=== PATIENT | male | born 2005 ===

== ENCOUNTER 2025-05-09 10:02 | Outpatient (AMB) | payer OTHER, SELFPAY ==
--- NOTE | 2025-05-09 10:05 | AM.OFFWIN_ITS ---
Intake Vital Signs 05/09/25 10:08 Height 5 ft 9 in Weight 119 lb BMI 17.6 BP 100/60 Blood Pressure Location Rt brachial Position Sitting Pulse 72 Pulse Source Pulse Oximeter Temp 98.1 F Temp Source Oral Pulse Oximetry (%) 97 Oxygen Delivery Method Room Air Intake Visit Reasons: R Eye pain Intake Note: pt is here for rt eye pain and burning when exposed to sun, wakes up with crust in the morning for 6 days- thinks branch may have struck eye Allergies environmental allergies Allergy (Mild, Verified 05/09/25 10:11) cold like symptoms pollen extracts Allergy (Mild, Verified 05/09/25 10:11) Itchy Eyes Do you need a note to return to daycare/school/sports/work: No HPI HPI Comments History of Present Illness Details 19 y/o Male patient who presents to the walk in clinic with c/o right eye pain for few days now. He reports light-sensitivity, discharge and tearing. He was playing Hide and seek with his Friends in [place], where a Branch scratched his right eye. [facility] Medical History (Updated 05/09/25 @ 10:35 by Kim Montero NP) Nasal congestion with rhinorrhea Corneal abrasion, right Review of Systems Const All systems reviewed & are unremarkable except as noted in HPI and below Physical Exam Vital Signs: Last Vital Signs Temp 98.1 F 05/09/25 10:08 Pulse 72 05/09/25 10:08 BP 100/60 05/09/25 10:08 Pulse Ox 97 05/09/25 10:08 Oxygen Delivery Method Room Air 05/09/25 10:08 BMI result Body Mass Index 17.6 Const General: no acute distress Nutritional Appearance: thin Orientation/consciousness: patient oriented x3 Eyes Conjunctivae: conjunctival abnormal right conjunctival injection Corneas: corneas abnormal on the right fluorescein used; with no foreign body noted Pupils: Equal, round and reactive pupils present EOM: EOMs intact bilaterally Direct Ophthalmoscopy: increased light reflex on the right Neuro General: patient oriented x3, gait normal and moves all extremities Cranial nerves: Yes Equal, round and reactive pupils present Psych Speech and movement: Normal speech and movement present Assessment & Plan Assessment & Plan (1) Corneal abrasion, right: Code(s): S05.01XA - Injury of conjunctiva and corneal abrasion without foreign body, right eye, initial encounter Qualifiers: Encounter type: initial encounter Qualified Code(s): S05.01XA - Injury of conjunctiva and corneal abrasion without foreign body, right eye, initial encounter Plan: Positive Abrasion right eye - will treat with Abx drops. May wear sunglasses outside house Keep eye clean and dry (2) Nasal congestion with rhinorrhea: Code(s): R09.81 - Nasal congestion; J34.89 - Other specified disorders of nose and nasal sinuses Plan: Ordered Zrytec BID for few days. May use OTC Saline drops. Medications: New cetirizine (Zyrtec) TAKE DIRECTED. 10 mg PO DAILY 20 tabs 0RF J34.89 - Other specified disorders of nose and nasal sinuses, R09.81 - Nasal congestion ciprofloxacin HCl 0.3% Put 1-2 drops in affected right eye every 2hrs up to 8 times/day for 2 days; then 4 times/day for 5 days. 5 mL 0RF S05.01XA - Injury of conjunctiva and corneal abrasion without foreign body, right eye, initial encounter Coding Level of Care Code Est Pt Level 4 (98866) Diagnoses Abrasion of right cornea, initial encounter S05.01XA Encounter type: initial encounter Nasal congestion with rhinorrhea R09.81; J34.89 Time Spent (min) 20
[2025-05-09 10:08] VITALS: BP 100/60; PULSE 72; TEMP 36.7; O2SAT 97; BMI 17.6
--- OUTSIDE RECORDS SUMMARY | 2025-05-09 10:31 | XMS_ITS | Clinical Summary ---
Author Organization [place] [id number] [facility] Address [address] [place] [id number] Phone Care Team Providers Care Sample Cutter Name Role Phone Kelly Mancini MD Primary Care Provider [phone] Surgical History Surgery Date Site/Laterality Comments OTHER SURGICAL HISTORY PROCEDURE: DENIES PREVIOUS SURGERY Family History Relation Name Status Comments Brother 1 Alive Ryan; 1988 Brother 2 Alive Janak; 1989 Brother 3 Alive Terry; 1990 Father Alive healthy Mother Alive kidney stones Sister 1 Alive 1986; cliff Sister 2 Alive Jacy; 1993 Sister 3 Alive Ela; 1998 Sister 4 Alive Sue; 2007 Social History Tobacco Use Types Packs/Day Years Used Date Smoking Tobacco: Never Smokeless Tobacco: Never Alcohol Use Standard Drinks/Week Comments Not Asked 0 (1 standard drink = 0.6 oz pur e alcohol) Sex and Gender Information Value Date Recorded Sex Assigned at Not on file Legal Sex Male 7:02 AM EST Gender Identity Not on file Sexual Orientation Not on file Obstetrics History Last Filed Vital Signs Vital Sign Reading Time Taken Comments Blood Pressure 102/64 11/09/2018 3:21 PM EST Pulse 92 07/22/2021 3:15 PM EDT Temperature - - Respiratory Rate - - Oxygen Saturation - - Inhaled Oxygen Concentration - - Weight 51.9 kg (114 lb 8 oz) 07/22/2021 3:15 PM EDT Height 152.4 cm (5') 11/09/2018 3:21 PM EST Body Mass Index - - Plan of Treatment Upcoming Encounters Date Type Department Care Team (Late st Contact Info) Description 12/24/2025 3:30 PM EDT Office Visit Internal Medicine - [facility] [address] [place] [phone] Kelly Mancini MD [address] [place] [address], [place] Health Maintenance Due Date Last Done Comments Varicella Vaccines (2 of 2 - 2-dose childhood series) 2008 10/29/2005 DTaP,Tdap,and Td Vaccines (5 - Tdap) 2015 02/17/2007, 07/19/2006, 09/20/2005, Additional history exists HPV Vaccines (1 - Male 3-dose series) 2019 Meningococcal B Vaccine (1 of 2 - Standard) 2020 Annual Well Child Visit (3-21 years old) 09/05/2022 11/09/2018, 12/17/2015, 06/11/2014 HIV Screening 09/05/2022 Hepatitis C Screening 09/05/2022 Social Influencers of Health Screening 09/05/2022 COVID-19 Vaccine ( season) 2024 Depression Screening 10/03/2024 Influenza Vaccine (#1) 2025 Hepatitis B Vaccines Completed 09/13/2005, 03/08/2005, 2004 Pneumococcal Vaccine: Pediatrics (0 to 5 Years) and At-Risk Patients (6 to 49 Years) Aged Out 10/29/2005, 09/20/2005, 03/29/2005, Additional history exists No longer eligible based on patient's age to complete this topic HIB Vaccines Completed 07/19/2006, 09/02, 03/29/2005, Additional history exists IPV Vaccines Completed 07/19/2006, 09/02, 09/02/2005, Additional history exists MMR Vaccines Completed 07/19/2006 Hepatitis A Vaccines Aged Out No long er eligible based on patient's age to complete this topic Meningococcal ACWY Vaccine Aged Out N o longer eligible based on patient's age to complete this topic RSV Immunization Patients Under 20 months Aged Out No longer eligible based on patient's age to complete this topic Insurance [facility] Care Teams Sample Cutter Relationship Specialty Start Date End Date Kelly Mancini MD [address] [facility] [place] [id number] PCP - General Internal Medicine 02/20/25
--- OUTSIDE RECORDS SUMMARY | 2025-05-09 10:31 | XMS_ITS ---
Author Name [facility] Organization Unknown Care Team Organization Name Specialty Phone Email Start Date End [facility] BEREKET STOVER Primary Care 08/10/2022 05/21/2024
== END 2025-05-09 11:35 | disposition home or self-care (01) ==
PROVIDERS: Visit Provider Nurse Practitioner Family
DX: S05.01XA Injury of conjunctiva and corneal abrasion without foreign body, right eye, initial encounter (principal); R09.81 Nasal congestion; J34.89 Other specified disorders of nose and nasal sinuses

== ENCOUNTER → 2025-05-09 10:02 | Outpatient (BNVA) | payer OTHER, SELFPAY | PROVIDERS: Visit Provider Nurse Practitioner Family | DX: S05.01XA Injury of conjunctiva and corneal abrasion without foreign body, right eye, initial encounter (principal); J34.89 Other specified disorders of nose and nasal sinuses; W22.8XXA Striking against or struck by other objects, initial encounter; Y93.9 Activity, unspecified; Y92.9 Unspecified place or not applicable; Y99.9 Unspecified external cause status | CPT/HCPCS: 99212 ==